=== PATIENT | female | born 1980 | race Caucasian/White ===

== ENCOUNTER 2023-09-14 18:45 | Emergency (ER) | payer OTHER, SELFPAY ==
[2023-09-14 18:47] VITALS: BP 133/88; PULSE 99; RESP 18; TEMP 37; O2SAT 99; BMI 29.1
--- NOTE | 2023-09-14 18:55 | CT_ITS ---
The [address] [address] Patient Name: TANIA CALABRESE MRN: [id number] date: 1980 Sex: F Assigned Patient Location: ER Current Patient Location: Accession/Order Number: [id number] Exam Date: 09/14/2023 19:23 Report Date: 09/14/2023 20:09 At the request of: ABBY SELLERS Procedure: CT abdomen pelvis w con EXAM: CT abdomen pelvis w con CLINICAL INDICATION: Right sided abdominal pain COMPARISON: None . TECHNIQUE: After the injection of intravenous nonionic iodinated contrast, axial CT of the abdomen, and pelvis was performed from the top of the hemidiaphragms to the inferior osseous pelvis. 2D reformats were obtained. Automatic exposure control radiation dose reduction technology was utilized. FINDINGS: Visualized portion of the lung bases are unremarkable. The liver, spleen, kidneys, adrenal glands and pancreas are within normal limits. Gallbladder is without calcified stones. No abdominal aortic aneurysm. No enlarged lymph nodes, free fluid, or free air. The bowel is without evidence of obstruction or adjacent inflammatory changes. Normal appendix. Bladder unremarkable. Grossly no suspicious osseous lesions are identified. CT/CT abdomen pelvis w con IMPRESSION: 1. No significant abnormality identified in the abdomen or pelvis, as described above. Normal appendix. Electronically authenticated by: RICHARD LAM Date: 09/14/2023 20:09
--- NOTE | 2023-09-14 18:56 | ED_ITS ---
HPI - Abdominal Pain General Chief Complaint: Abdominal Pain Stated Complaint: Flank Pain Time Seen by Provider: 09/14/23 18:46 Source: patient Mode of arrival: walk-in History of Present Illness HPI narrative: Patient is a 43-year-old female who presents to the emergency department for a 5-hour history of pain in the right side of the abdomen. She reports some radiation to the right flank. She has not had the symptoms previously. She denies fevers, chills, nausea, vomiting, diarrhea, urinary symptoms. No medications taken prior to arrival. She last ate a piece of pizza around 2 PM. She has had a previous hysterectomy, no other abdominal surgeries. Related Data Previous Rx's Medication Instructions Recorded hyoscyamine sulfate 0.125 mg 0.125 mg PO Q6H PRN abdominal pain 09/14/23 tablet (Levsin) #12 tabs ketorolac 10 mg tablet 10 mg PO TID PRN pain #10 tabs 09/14/23 ondansetron 4 mg disintegrating 4 mg PO Q6H PRN nausea and 09/14/23 tablet vomiting #12 tabs Allergies Allergy/AdvReac Type Severity Reaction Status Date / Time No Known Drug Allergies Allergy Verified 09/14/23 18:50 Review of Systems ROS Constitutional Denies: fever or chills Ears, nose, mouth, and throat Denies: throat pain or nasal congestion Cardiovascular Denies: chest pain Respiratory Denies: shortness of breath or cough Gastrointestinal Reports: abdominal pain; Denies: nausea, vomiting or diarrhea Genitourinary Denies: painful urination Musculoskeletal Reports: back pain; Denies: neck pain or extremity pain Integumentary/Breast Denies: rash Hematologic/Lymphatic Denies: easy bruising Allergic/Immunologic Denies: hives Exam Narrative Exam Narrative: Gen.: Awake, alert, in no distress Head: Normocephalic, atraumatic ENT: Moist mucous membranes Respiratory: No respiratory distress, lungs clear bilaterally Cardio: Regular rate and rhythm Gastrointestinal: Abdomen is soft, nondistended and Diffusely tender to palpation of the right upper quadrant, right lower quadrant and suprapubic abdomen with no McBurney's point tenderness. No guarding or rebound Extremities: Moves extremities equally Psych: Normal mood and affect Neuro: No focal neuro deficit Skin: Warm, dry, intact Constitutional Vital Signs, click to edit/add: Last Vital Signs Temp 98.8 F 09/14/23 20:32 Pulse 92 H 09/14/23 20:32 Resp 16 09/14/23 20:32 BP 141/88 09/14/23 20:32 Pulse Ox 98 09/14/23 20:32 O2 Del Method Room Air 09/14/23 20:32 Course Vital Signs Vital signs: Vital Signs Temperature 98.6 F 09/14/23 18:47 Pulse Rate 99 H 09/14/23 18:47 Respiratory Rate 18 09/14/23 18:47 Blood Pressure 133/88 09/14/23 18:47 Pulse Oximetry 99 09/14/23 18:47 Oxygen Delivery Method Room Air 09/14/23 18:47 Temperature 98.8 F 09/14/23 20:32 Pulse Rate 92 H 09/14/23 20:32 Respiratory Rate 16 09/14/23 20:32 Blood Pressure 141/88 09/14/23 20:32 Pulse Oximetry 98 09/14/23 20:32 Oxygen Delivery Method Room Air 09/14/23 20:32 MDM - Abdominal Pain MDM Narrative Medical decision making narrative: Lab studies grossly unremarkable, CT of the abdomen and pelvis performed showing no evidence of acute abnormalities. Patient was medicated in the ER with IV fluids, Dilaudid, Toradol, Zofran. She maintains normal vital signs. She is uncomfortable on arrival to the ER but is much more relaxed and comfortable on reevaluation, she has no pain out of proportion on exam. She is discharged home with a copy of her CT results to follow-up with her PCP and return to the ER if symptoms change or worsen. Levsin, Toradol, Zofran given for home. Medical Records Attestation: I reviewed the patient's medical records. Lab Data Attestation: I reviewed the patient's lab results. Labs: Lab Results 09/14/23 09/14/23 Range/Units 16:55 19:00 WBC 12.0 H (4.0-11.0) 10^3/uL RBC 4.72 (4.20-5.40) 10^6/uL Hgb 13.6 (12.0-16.0) g/dL Hct 42.3 (36.0-48.0) % MCV 89.6 (81.0-99.0) fL MCH 28.8 (26.7-34.0) pg MCHC 32.2 (29.9-35.2) g/dL RDW 13.5 (11.0-15.0) % Plt Count 358 (150-450) 10^3/uL MPV 9.5 (9.5-13.5) fL Neut % (Auto) 69.4 (43.0-75.0) % Lymph % (Auto) 20.6 (20.5-60.0) % [place] % (Auto) 7.8 (1.7-12.0) % Eos % (Auto) 0.7 L (0.9-7.0) % Baso % (Auto) 0.7 (0.2-2.0) % Neut # (Auto) 8.3 H (1.4-6.5) 10^3/uL Lymph # (Auto) 2.5 (1.2-3.8) 10^3/uL [place] # (Auto) 0.9 H (0.3-0.8) 10^3/uL Eos # (Auto) 0.1 (0.0-0.7) 10^3/uL Baso # (Auto) 0.1 (0.0-0.1) 10^3/uL Abs Immat Gran (auto) 0.09 H (0.00-0.03) 10^3/uL Imm/Tot Granulo (auto) 0.8 H (0.0-0.5) % Sodium 142 (136-145) mmol/L Potassium 3.8 (3.5-5.1) mmol/L Chloride 103 (98-107) mmol/L Carbon Dioxide 28.3 (21.0-32.0) mmol/L Anion Gap 14.5 BUN 9.0 (7.0-18.0) mg/dL Creatinine 0.71 (0.55-1.02) mg/dL Est GFR ( Amer) >60 (>=60) Est GFR (Non-Af Amer) >60 (>=60) BUN/Creatinine Ratio 12.7 Glucose 105 (74-106) mg/dL Lactate 1.8 (0.4-2.0) mmol/L Calcium 9.5 (8.5-10.1) mg/dL Total Bilirubin 0.4 (0.2-1.0) mg/dL AST 17 (15-37) U/L ALT 17 (14-59) U/L Alkaline Phosphatase 69 (46-116) U/L Total Protein 7.8 (6.4-8.2) g/dL Albumin 3.6 (3.4-5.0) g/dL Globulin 4.2 g/dL Albumin/Globulin Ratio 0.9 Lipase 47.0 (16.0-77.0) U/L Urine Color Yellow (YELLOW) Urine Clarity Clear (CLEAR) Urine pH 7.0 (5.0-9.0) Ur Specific [place] 1.020 (1.005-1.025) Urine Protein Negative (NEG/TRACE) mg/dL Urine Glucose (UA) Negative (NEGATIVE) mg/dL Urine Ketones Negative (NEGATIVE) mg/dL Urine Occult Blood Negative (NEGATIVE) Urine Nitrite Negative (NEGATIVE) Urine Bilirubin Negative (NEGATIVE) Urine Urobilinogen 0.2 (0.2-1.0) EU/dL Ur Leukocyte Esterase Negative (NEGATIVE) Imaging Data CT scan - abdomen: Attestation: I have reviewed the pertinent imaging results. Radiologist's impression: ITS Impressions Abdomen/Pelvis CT 09/14/23 18:55 IMPRESSION: 1. No significant abnormality identified in the abdomen or pelvis, as described above. Normal appendix. Electronically authenticated by: RICHARD LAM Date: 09/14/2023 20:09 Discharge Plan Discharge Chief Complaint: Abdominal Pain Clinical Impression: Abdominal pain Patient Disposition: Home, Self-Care Time of Disposition Decision: 20:20 Condition: Good Prescriptions / Home Meds: New ketorolac 10 mg tablet 10 mg PO TID PRN (Reason: pain) Qty: 10 0RF hyoscyamine sulfate [Levsin] 0.125 mg tablet 0.125 mg PO Q6H PRN (Reason: abdominal pain) Qty: 12 0RF ondansetron 4 mg tablet,disintegrating 4 mg PO Q6H PRN (Reason: nausea and vomiting) Qty: 12 0RF Instructions: Acute Abdominal Pain (ED) Stand Alone Forms: Portal Instructions Referrals: PAULINE LANE [Primary Care Provider] - 1 week Discharge Date/Time: 09/14/23 20:47
[2023-09-14 19:05] LABS: Basophils Absolute Auto 0.1 10^3/uL (0.0-0.1); Basophils Percent Auto 0.7 % (0.2-2.0); Eosinophils Absolute Auto 0.1 10^3/uL (0.0-0.7); Eosinophils Percent Auto 0.7 % (0.9-7.0); Hematocrit 42.3 % (36.0-48.0); Hemoglobin 13.6 g/dL (12.0-16.0); Immature Granulocytes Abs Auto 0.09 10^3/uL (0.00-0.03); Immature Granulocytes Pct Auto 0.8 % (0.0-0.5); Lymphocytes Absolute Auto 2.5 10^3/uL (1.2-3.8); Lymphocytes Percent Auto 20.6 % (20.5-60.0); Mean Corpuscular HGB Conc 32.2 g/dL (29.9-35.2); Mean Corpuscular Hemoglobin 28.8 pg (26.7-34.0); Mean Corpuscular Volume 89.6 fL (81.0-99.0); Mean Platelet Volume 9.5 fL (9.5-13.5); Monocytes Absolute Auto 0.9 10^3/uL (0.3-0.8); Monocytes Percent Auto 7.8 % (1.7-12.0); Neutrophils Absolute Auto 8.3 10^3/uL (1.4-6.5); Neutrophils Percent Auto 69.4 % (43.0-75.0); Platelet Count 358 10^3/uL (150-450); Red Blood Count 4.72 10^6/uL (4.20-5.40); Red Cell Distribution Width 13.5 % (11.0-15.0)
[2023-09-14] MEDS: 0.9 % SODIUM CHLORIDE 1,000 ML 999 ML IV (19:10)
[2023-09-14] MEDS: KETOROLAC TROMETHAMINE 30 MG/ML VIAL IVP (19:10)
[2023-09-14] MEDS: HYDROMORPHONE HCL 1 MG/ML CARTRIDGE IVP (19:11)
[2023-09-14] MEDS: ONDANSETRON PF 4 MG/2 ML VIAL IV (19:11)
[2023-09-14 19:18] LABS: Alanine Aminotransferase 17 U/L (14-59); Albumin Globulin Ratio 0.9; Albumin Level 3.6 g/dL (3.4-5.0); Alkaline Phosphatase 69 U/L (46-116); Anion Gap 14.5; Aspartate Amino Transferase 17 U/L (15-37); BUN Creatinine Ratio 12.7; Bilirubin Total 0.4 mg/dL (0.2-1.0); Calcium 9.5 mg/dL (8.5-10.1); Carbon Dioxide 28.3 mmol/L (21.0-32.0); Chloride 103 mmol/L (98-107); Estimated GFR (African America >60 (>=60); Estimated GFR (Non-African Ame >60 (>=60); Globulin 4.2 g/dL; Glucose 105 mg/dL (74-106); Potassium 3.8 mmol/L (3.5-5.1); Sodium 142 mmol/L (136-145); Total Protein 7.8 g/dL (6.4-8.2)
[2023-09-14 19:21] LABS: Lactate/Lactic Acid 1.8 mmol/L (0.4-2.0)
[2023-09-14 19:25] LABS: Bilirubin Urine NEGATIVE (NEGATIVE); Blood Urine NEGATIVE (NEGATIVE); Clarity Urine CLEAR (CLEAR); Color Urine YELLOW (YELLOW); Glucose Urine UA NEGATIVE (NEGATIVE); Ketones Urine NEGATIVE (NEGATIVE); Leukocyte Esterase Urine NEGATIVE (NEGATIVE); Nitrite Urine NEGATIVE (NEGATIVE); Protein Urine NEGATIVE (NEG/TRACE); Urine Microscopic Indicated NO; Urobilinogen Urine 0.2 EU/dL (0.2-1.0)
[2023-09-14 20:32] VITALS: BP 141/88; PULSE 92; RESP 16; TEMP 37.1; O2SAT 98
[2023-09-14] MEDS: ONDANSETRON 4 MG RAPDIS TABLET SL (20:45)
[2023-09-14] MEDS: HYOSCYAMINE SULFATE 0.125 MG TAB.SUBL SL (20:45)
== END 2023-09-14 20:47 | disposition home or self-care (01) ==
PROVIDERS: Physician Assistant; Emergency Provider Internal Medicine; PCP Nurse Practitioner Family
DX: R10.31 Right lower quadrant pain (principal); R10.11 Right upper quadrant pain; Z90.710 Acquired absence of both cervix and uterus
CPT/HCPCS: 36415; 74177; 80053; 81003; 83605; 83690; 85025; 96374; 96375; 99285; J1170; J1885; J2405; Q0162; Q9967